=== PATIENT | male | born 1940 | race Caucasian/White ===

== ENCOUNTER 2023-12-14 15:30 | Emergency (ER) | payer MEDICARE ==
[~2023-12-14] VITALS: Ht 172.7 cm; Wt 90.7 kg
[2023-12-14 15:35] VITALS: O2SAT 98
[2023-12-14] MEDS ORDERED: SILVER SULFADIAZINE 1% CREAM 50 GM TP ONE (15:59)
[2023-12-14] MEDS ORDERED: SILV50CR32 TP (16:17)
[2023-12-14] MEDS: SILVER SULFADIAZINE 1% CREAM 50 GM TP ONE (18:06)
== END 2023-12-14 16:22 | disposition home or self-care (01) ==
LOC: ER 15:30
DX: I83.209 Varicose veins of unspecified lower extremity with both ulcer of unspecified site and inflammation (principal); Z79.899 Other long term (current) drug therapy; Z88.0 Allergy status to penicillin
CPT/HCPCS: A4606; A4663

== ENCOUNTER 2024-03-25 15:20 | Inpatient (IN) | payer MEDICARE ==
[~2024-03-25] VITALS: Ht 180.3 cm; Wt 83.9 kg
[~2024-03-25 15:20] MED LIST: SILV50CR32 TP
[2024-03-25 18:00] VITALS: BP 110/59; TEMP 98.5; O2SAT 97
[2024-03-25] MEDS ORDERED: TRAV5DRO OP (19:47)
[2024-03-25] MEDS ORDERED: TADA5TAB13 PO (19:47)
[2024-03-25] MEDS ORDERED: NETA2.5D OP (19:47)
[2024-03-25] MEDS ORDERED: CLON2TAB11 PO (19:47)
[2024-03-25] MEDS ORDERED: DIGO250T PO (19:47)
[2024-03-25] MEDS ORDERED: ALBU8.5H8 IH (19:47)
[2024-03-25] MEDS ORDERED: PRIM50TA27 PO (19:47)
[2024-03-25] MEDS ORDERED: GABA300C PO (19:47)
[2024-03-25] MEDS ORDERED: AZIT500T4 PO (19:47)
[2024-03-25] MEDS ORDERED: PRAM0.253 PO (19:47)
[2024-03-25] MEDS ORDERED: FURO-152 PO (19:47)
[2024-03-25] MEDS ORDERED: ROSU40TA PO (19:47)
[2024-03-25] MEDS ORDERED: FINA5TAB3 PO (19:47)
[2024-03-25] MEDS ORDERED: METO-357 PO ×2 (19:47)
[2024-03-25] MEDS ORDERED: BRIN10DR EACHEYE (19:47)
[2024-03-25] MEDS ORDERED: ALFU10TA10 PO (19:47)
[2024-03-25] MEDS ORDERED: LEVO150T8 PO (19:47)
[2024-03-25] MEDS ORDERED: SUMA100T16 PO (19:47)
[2024-03-25] MEDS ORDERED: LOSA100T31 PO (19:47)
[2024-03-25] MEDS ORDERED: ASPI81TA31 PO (19:47)
[2024-03-25] MEDS ORDERED: FLUT1BLS IH (19:47)
[2024-03-25] MEDS ORDERED: MECL-225 PO (19:47)
[2024-03-25] MEDS ORDERED: CLOP75TA15 PO (19:47)
[2024-03-25] MEDS ORDERED: SUMATRIPTAN SUCCINATE 50 MG TABLET PO PRN (20:00)
[2024-03-25] MEDS ORDERED: ALBUTEROL SULFATE 8 GM HFA.AER.AD IH PRN (20:00)
[2024-03-25] MEDS ORDERED: MECLIZINE HCL 12.5 MG TABLET PO PRN (20:00)
[2024-03-25] MEDS: TRAVOPROST 0.004% OPHT DROP 2.5 ML BOTTLE EACHEYE SCH (21:00)
[2024-03-25] MEDS: AZITHROMYCIN 250 MG TABLET PO SCH (21:59)
[2024-03-25] MEDS: ATORVASTATIN 40 MG TABLET PO SCH (21:59)
[2024-03-26 04:29] VITALS: O2SAT 97
[2024-03-26] MEDS ORDERED: ALBUTEROL SULFATE 2.5 MG/3 ML NEBU NEB PRN (05:30)
[2024-03-26 08:19] VITALS: BP 117/72; O2SAT 97
[2024-03-26] MEDS ORDERED: SILVER SULFADIAZINE 1% CREAM 50 GM TP SCH ×2 (09:00)
[2024-03-26] MEDS ORDERED: BRINZOLAMIDE 1% OPHT DROP 10 ML BOTTLE EACHEYE SCH ×2 (09:00)
[2024-03-26] MEDS: METOPROLOL SUCCINATE XL 50 MG TAB.SR.24H PO SCH (09:00)
[2024-03-26] MEDS ORDERED: LEVOTHYROXINE SODIUM 150 MCG TABLET PO SCH (09:00)
[2024-03-26] MEDS ORDERED: METOPROLOL SUCCINATE XL 50 MG TAB.SR.24H PO SCH (09:00)
[2024-03-26] MEDS ORDERED: ALFUZOSIN HCL 10 MG TAB.SR.24H PO SCH (09:00)
[2024-03-26] MEDS ORDERED: FLUTICASONE/VILANTEROL 1 EACH BLST.W.DEV IH SCH (09:00)
[2024-03-26] MEDS: PRIMIDONE 50 MG TABLET PO SCH ×2 (09:28→14:10)
[2024-03-26] MEDS: CLONAZEPAM 1 MG TABLET PO SCH (09:28)
[2024-03-26] MEDS: DIGOXIN 250 MCG TABLET PO SCH (09:33)
[2024-03-26] MEDS: FINASTERIDE 5 MG TABLET PO SCH (09:34)
[2024-03-26] MEDS: ASPIRIN 81 MG TAB.CHEW PO SCH (09:34)
[2024-03-26] MEDS: PRAMIPEXOLE 0.25 MG TABLET PO SCH ×2 (09:34→14:10)
[2024-03-26] MEDS: LOSARTAN POTASSIUM 50 MG TABLET PO SCH (09:35)
[2024-03-26] MEDS: FUROSEMIDE 20 MG TABLET PO SCH (09:35)
[2024-03-26] MEDS: LEVOTHYROXINE SODIUM 150 MCG TABLET PO ONE (09:36)
[2024-03-26] MEDS: GABAPENTIN 300 MG CAPSULE PO SCH ×2 (09:37→17:09)
[2024-03-26] MEDS: FLUTICASONE/VILANTEROL 1 EACH BLST.W.DEV IH SCH (09:37)
[2024-03-26] MEDS: CLOPIDOGREL 75 MG TABLET PO SCH (09:38)
[2024-03-26] MEDS ORDERED: LATA2.5D2 EACHEYE (10:06)
[2024-03-26] MEDS ORDERED: SUMA50TA PO (10:12)
[2024-03-26] MEDS ORDERED: SUMATRIPTAN SUCCINATE 50 MG TABLET PO PRN (10:45)
[2024-03-26 10:47] VITALS: BP 111/63; O2SAT 96
[2024-03-26] MEDS ORDERED: MECLIZINE HCL 12.5 MG TABLET PO PRN (11:16)
[2024-03-26] MEDS: DORZOLAMIDE 2% OPHT DROP 10 ML BOTTLE EACHEYE SCH (14:09)
[2024-03-26] MEDS: ALFUZOSIN HCL 10 MG TAB.SR.24H PO SCH (14:29)
[2024-03-26 16:13] VITALS: BP 124/56; TEMP 97.7; O2SAT 97
[2024-03-26 17:17] LABS: *BILIRUBIN,URIN NEGATIVE (NEGATIVE); *BLOOD, URINE NEGATIVE (NEGATIVE); *CLARITY,URINE CLEAR (CLEAR); *COLOR,URINE YELLOW (YELLOW); *KETONES,URINE NEGATIVE (NEGATIVE); *PROTEIN,URINE NEGATIVE (NEGATIVE); LEUKOCYTE ESTERASE ,URINE NEGATIVE (NEGATIVE); NITRITE, URINE NEGATIVE (NEGATIVE); UGLUCOSE NEGATIVE (NEGATIVE)
[2024-03-26 17:18] LABS: RBC,URINE 0-3 /HPF (0-3); WBC,URINE 0-3 /HPF (0-3)
[2024-03-26] MEDS: LATANOPROST OPHT DROP 2.5 ML BOTTLE OP SCH (20:18)
[2024-03-26 20:30] VITALS: BP 118/58; TEMP 97.8; O2SAT 98
[2024-03-27] MEDS: LEVOTHYROXINE SODIUM 150 MCG TABLET PO SCH (06:28)
[2024-03-27 07:02] VITALS: BP 117/45; TEMP 98; O2SAT 97
[2024-03-27 08:05] VITALS: BP 131/51; TEMP 97.9; O2SAT 94
[2024-03-27] MEDS ORDERED: RHOPRESSA EACHEYE SCH (09:00)
[2024-03-27] MEDS ORDERED: OPTH EACHEYE SCH (09:00)
[2024-03-27] MEDS: TADALAFIL 5 MG PO SCH (10:33)
[2024-03-27] MEDS: DIGOXIN 250 MCG TABLET PO SCH (13:15)
[2024-03-27 13:30] VITALS: BP 93/50; TEMP 97.4; O2SAT 99
[2024-03-27 16:20] VITALS: O2SAT 98
[2024-03-27] MEDS: CLONAZEPAM 1 MG TABLET PO SCH (17:45)
[2024-03-27 21:20] VITALS: BP 122/64; TEMP 98.3; O2SAT 97
[2024-03-28 04:03] VITALS: O2SAT 98
[2024-03-28 07:03] VITALS: BP 125/45; TEMP 97.9; O2SAT 95
[2024-03-28 07:05] LABS: BASOPHILS # (AUTO) 0.1 K/UL (0.0-0.2); BASOPHILS % (AUTO) 0.7 % (0.0-2.0); EOSINOPHILS # (AUTO) 0.1 K/uL (0.0-0.7); EOSINOPHILS % (AUTO) 1.4 % (0.0-7.0); HEMATOCRIT 37.4 % (36.7-47.1); HEMOGLOBIN 13.1 g/dL (12.5-16.3); LYMPHOCYTES # (AUTO) 6.7 K/uL (0.8-4.8); LYMPHOCYTES % (AUTO) 62.8 % (20.5-51.5); MEAN CORPUSCULAR HEMOGLOBIN 32.3 uug (23.8-33.4); MEAN CORPUSCULAR HGB CONC 35 g/dL (32.5-36.3); MEAN CORPUSCULAR VOLUME 92.1 fL (73.0-96.2); MONOCYTES # (AUTO) 0.9 K/uL (0.1-1.30); MONOCYTES % (AUTO) 8.1 % (0.0-11.0); NEUTROPHILS # (AUTO) 2.9 K/uL (1.8-8.9); PLATELET COUNT (AUTO) 176 K/uL (152-348); RED BLOOD CELL COUNT(AUTO) 4.06 MIL/uL (4.06-5.63); RED CELL DISTRIBUTION WIDTH 13.7 % (12.1-16.2); WHITE BLOOD COUNT (AUTO) 10.6 K/uL (3.6-10.2)
[2024-03-28 07:50] LABS: DIFFERENTIAL COMMENT 1
[2024-03-28] MEDS: OPTH EACHEYE SCH (09:57)
[2024-03-28] MEDS: RHOPRESSA EACHEYE SCH (09:57)
[2024-03-28 10:22] VITALS: BP 109/59; TEMP 98.2; O2SAT 96
[2024-03-28 16:34] VITALS: O2SAT 98
[2024-03-28] MEDS: ENSURE ENLIVE (VAN) 240 ML LIQUID PO SCH (17:50)
[2024-03-28 20:58] VITALS: BP 128/64; TEMP 98.2; O2SAT 95
[2024-03-29 04:34] VITALS: O2SAT 98
[2024-03-29 05:55] VITALS: BP 129/59; TEMP 97.7; O2SAT 96
[2024-03-29 09:20] VITALS: O2SAT 97
[2024-03-29 18:48] VITALS: BP 111/53; TEMP 97.7; O2SAT 96
[2024-03-29 20:21] VITALS: BP 115/54; TEMP 97.5; O2SAT 94
[2024-03-30 04:30] VITALS: O2SAT 97
[2024-03-30 06:17] VITALS: BP 135/60; TEMP 97.6; O2SAT 93
[2024-03-30 08:00] VITALS: BP 107/61; TEMP 97.6; O2SAT 93
[2024-03-30 09:00] VITALS: O2SAT 97
[2024-03-30 16:20] VITALS: BP 108/54; TEMP 98.2; O2SAT 95
[2024-03-30 20:00] VITALS: BP 96/59; TEMP 98.1; O2SAT 98
[2024-03-31 01:12] VITALS: O2SAT 98
[2024-03-31 06:00] VITALS: BP 118/60; TEMP 98; O2SAT 97
[2024-03-31 16:00] VITALS: BP 104/58; TEMP 97.7; O2SAT 96
[2024-03-31 17:00] VITALS: O2SAT 96
[2024-03-31 21:08] VITALS: BP 104/48; TEMP 97.6; O2SAT 95
[2024-03-31 23:54] VITALS: O2SAT 95
[2024-04-01 06:04] VITALS: BP 114/55; TEMP 97.3; O2SAT 97
[2024-04-01 16:35] VITALS: BP 109/43; TEMP 98; O2SAT 96
[2024-04-01 17:39] VITALS: O2SAT 96
[2024-04-01 19:49] VITALS: BP 103/62; TEMP 97.7; O2SAT 96
[2024-04-02 01:34] VITALS: O2SAT 97
[2024-04-02 06:35] VITALS: BP 129/45; TEMP 97.6; O2SAT 95
[2024-04-02 08:51] VITALS: BP 115/67; O2SAT 95
[2024-04-02 13:03] VITALS: BP 102/56; O2SAT 95
[2024-04-02 16:03] VITALS: BP 113/59; TEMP 97.8; O2SAT 96
[2024-04-02 20:07] VITALS: BP 141/64; TEMP 97.8; O2SAT 96
[2024-04-03 05:00] VITALS: BP 132/51; TEMP 97.9; O2SAT 93
[2024-04-03 05:35] VITALS: O2SAT 97
[2024-04-03 14:25] LABS: BASOPHILS # (AUTO) 0.1 K/UL (0.0-0.2); BASOPHILS % (AUTO) 0.7 % (0.0-2.0); EOSINOPHILS # (AUTO) 0.1 K/uL (0.0-0.7); EOSINOPHILS % (AUTO) 1.4 % (0.0-7.0); HEMATOCRIT 35.6 % (36.7-47.1); HEMOGLOBIN 12.2 g/dL (12.5-16.3); LYMPHOCYTES # (AUTO) 4.1 K/uL (0.8-4.8); LYMPHOCYTES % (AUTO) 48.5 % (20.5-51.5); MEAN CORPUSCULAR HEMOGLOBIN 31.5 uug (23.8-33.4); MEAN CORPUSCULAR HGB CONC 34 g/dL (32.5-36.3); MEAN CORPUSCULAR VOLUME 91.6 fL (73.0-96.2); MONOCYTES # (AUTO) 0.8 K/uL (0.1-1.30); MONOCYTES % (AUTO) 9.8 % (0.0-11.0); NEUTROPHILS # (AUTO) 3.3 K/uL (1.8-8.9); NEUTROPHILS % (AUTO) 39.6 % (38.5-71.5); PLATELET COUNT (AUTO) 285 K/uL (152-348); RED BLOOD CELL COUNT(AUTO) 3.89 MIL/uL (4.06-5.63); WHITE BLOOD COUNT (AUTO) 8.4 K/uL (3.6-10.2)
[2024-04-03 14:26] LABS: DIFFERENTIAL COMMENT 1
[2024-04-03 14:39] LABS: CALCIUM 8.5 mg/dL (8.5-10.1); CARBON DIOXIDE 28 mmol/L (21-32); CHLORIDE 103 mmol/L (98-107); CREATININE 0.8 mg/dL (0.6-1.3); GLUCOSE 99 mg/dL (74-106); POTASSIUM 4.5 mmol/L (3.5-5.1); SODIUM SERUM 137 mmol/L (136-145); UREA NITROGEN, BLOOD 15 mg/dL (7-18)
[2024-04-03 14:44] LABS: ALANINE AMINOTRANSFERASE 49 U/L (16-63); ALBUMIN 2.4 g/dL (3.4-5.0); ALKALINE PHOSPHATASE 70 U/L (50-136); ASPARTATE AMINOTRANSFERASE 41 U/L (15-37); BILIRUBIN,TOTAL 0.5 mg/dL (0.2-1.0); TOTAL PROTEIN, SERUM 6.1 g/dL (6.4-8.2)
[2024-04-03 16:10] VITALS: BP 115/55; TEMP 97.6; O2SAT 98
[2024-04-03 16:20] VITALS: O2SAT 98
[2024-04-03 20:06] VITALS: BP 113/49; TEMP 97.9; O2SAT 97
[2024-04-04 06:04] VITALS: BP 120/51; TEMP 97.6; O2SAT 96
[2024-04-04 16:25] VITALS: O2SAT 98
[2024-04-04 17:58] VITALS: BP 112/49; TEMP 97.9; O2SAT 95
[2024-04-04 19:00] VITALS: BP 105/43; TEMP 97.6; O2SAT 94
[2024-04-04 21:55] VITALS: O2SAT 98
[2024-04-05 06:00] VITALS: BP 99/57; TEMP 97.7; O2SAT 98
[2024-04-05] MEDS: DIGOXIN 125 MCG TABLET PO SCH (08:41)
[2024-04-05] MEDS: METOPROLOL SUCCINATE XL 25 MG TAB.SR.24H PO SCH (10:36)
[2024-04-05 15:06] VITALS: BP 107/29; TEMP 97.6; O2SAT 96
[2024-04-05 16:44] VITALS: O2SAT 98
[2024-04-05 19:54] VITALS: BP 95/42; TEMP 97.9; O2SAT 95
[2024-04-06 04:53] VITALS: O2SAT 97
[2024-04-06 07:03] VITALS: BP 117/44; TEMP 98; O2SAT 95
[2024-04-06 08:39] VITALS: BP 156/39
== END 2024-04-06 15:00 | disposition home health service (06) | DRG 947 ==
PROVIDERS: ADMIT Physical Medicine & Rehabilitation Pain Medicine; ATTEND Physical Medicine & Rehabilitation Pain Medicine
DX: R53.1 Weakness (principal); E43 Unspecified severe protein-calorie malnutrition; J18.9 Pneumonia, unspecified organism; D68.59 Other primary thrombophilia; I50.32 Chronic diastolic (congestive) heart failure; J44.0 Chronic obstructive pulmonary disease with (acute) lower respiratory infection; E03.9 Hypothyroidism, unspecified; E78.5 Hyperlipidemia, unspecified; E86.0 Dehydration; E88.09 Other disorders of plasma-protein metabolism, not elsewhere classified; G62.9 Polyneuropathy, unspecified; H91.90 Unspecified hearing loss, unspecified ear; I11.0 Hypertensive heart disease with heart failure; I25.10 Atherosclerotic heart disease of native coronary artery without angina pectoris; I48.91 Unspecified atrial fibrillation; Z91.81 History of falling; Z88.0 Allergy status to penicillin; Z95.1 Presence of aortocoronary bypass graft; G89.29 Other chronic pain; H81.13 Benign paroxysmal vertigo, bilateral; I48.0 Paroxysmal atrial fibrillation; I49.3 Ventricular premature depolarization; I95.2 Hypotension due to drugs; T50.905A Adverse effect of unspecified drugs, medicaments and biological substances, initial encounter; Y92.9 Unspecified place or not applicable; R29.6 Repeated falls; R00.1 Bradycardia, unspecified; R26.81 Unsteadiness on feet; R41.81 Age-related cognitive decline
CPT/HCPCS: 36415; 84484; 85025; 93005; 97535-GO-CO; J3535; J8499; Q0144